=== PATIENT | male | born 1940 | race Two or more races ===

== ENCOUNTER → 2017-01-15 | Outpatient (CLI) | payer MEDICARE ==
--- NOTE | ~2017-01-15 | CT55 ---
[facility] A Service of [facility] & [facility] RADIOLOGY TEXT RESULTS PATIENT: MAXWELL KRUGER LOCATION: [facility] : 44 UNIT #: [id number] AGE: [address]: Bon Estevez MD SEX: M ORDER DR: [id number] [facility] [address] [place], [place] [address] [id number] O MR#: [id number] [facility] #: [id number] NAME: MAXWELL KRUGER : 1940 SEX: M STUDY DATE/TIME: 01/15/2017 14:51 UNIT: [facility] ROOM: STUDY DESCRIPTION: CT Chest W Con Attending Physician: Bon Estevez M.D. Referring Physician: Bon Estevez M.D. Ordering Physician: Bon Estevez M.D. Primary Care Physician: No Primary Care Physician MEDICAL IMAGING REPORT This report is preliminary unless electronic signature is present EXAM CT chest with contrast, 01/15/2017, 1451 hours. CLINICAL HISTORY 76-year-old man with history of lung cancer diagnosed 8 years ago with followup chemotherapy. Observation for suspected malignant neoplasm. Patient had recent pacemaker placement last month but no current chest complaints. COMPARISON CT angiogram of the abdomen and pelvis, 01/09/2016. Chest x-ray 09/17/2011. There is no prior chest CT for comparison. TECHNIQUE Dynamic helical CT images were obtained from the thoracic inlet through the adrenal glands. Sagittal and coronal reconstructions were performed. Contrast was Isovue-370 70 mL IV. Total exam DLP 523 mGy-cm. This CT exam was performed with one or more of the following radiation dose reduction techniques: automatic exposure control, adjustment of mA and/or kV according to patient size, and iterative reconstruction. FINDINGS Images through the thoracic inlet demonstrate no thyroid mass or supraclavicular adenopathy. There is median sternotomy change. There is a left subclavian pacer with leads over the right atrium and right ventricle. There is diffuse atherosclerotic change of the aorta with aneurysmal dilatation of the ascending aorta measuring 4.4 cm and descending thoracic aorta measuring 3.2 cm. There is no dissection. Cardiac chambers and pericardium are normal. The esophagus is normal. There are benign calcified subcarinal and hilar nodes. There is no pathologic adenopathy. Cardiac chambers and pericardium are normal. [facility]. [facility] A Service of [facility] RADIOLOGY TEXT RESULTS PATIENT: MAXWELL KRUGER LOCATION: [facility] : 44 UNIT #: [id number] AGE: [address]: Bon Estevez MD SEX: M ORDER DR: The lungs demonstrate emphysematous change and postop change in the left lung. There is a triangular-shaped density at the left apex, most likely an area of scar. There is suture line in the left midlung. There are ground-glass opacities having a rounded configuration in the left midlung left lung base which are indeterminate. These are not included in the field of view with CT lung window images from CT abdomen 01/09/2016. There is a cavitary lesion anteriorly in the left upper lobe measuring 3.1 x 3.2 x 3.5 cm with nodular thickening in the wall, particularly anterolaterally. This is concerning for malignancy. This is not included in the field of view of CT abdomen 01/09/2016 and do not have a prior chest CT available for comparison. Calcified granulomata are present. Limited views through the upper abdomen demonstrate no liver lesion. There is density in the gallbladder, likely sludge. The adrenal glands demonstrate stable thickening, left greater than right, as compared to 01/09/2016 CT abdomen. This is likely benign hyperplasia or adenoma. IMPRESSION 1. Abnormal chest CT. There is a cavitary 3.2 x 3.1 x 3.5 cm lesion in the anterior aspect right upper lobe with nodular thickening of the wall concerning for malignancy. I do not have a prior chest CT available for comparison. This area is not included in the field of view or prior CT abdomen and the lesion is not apparent on most recent available chest film of 09/17/2011. Correlation with more recent chest CTs would be helpful in assessing stability. 2. There is postop change in the left mid lung with suture line present. There are 3 small vague rounded ground-glass areas in the left lung which are indeterminate. Comparison with prior imaging would be helpful. Malignancy cannot be excluded. 3. There is no adenopathy or pleural effusion. 4. There is volume loss in the left hemithorax with triangular-shaped soft tissue density at the left apex most consistent with scar or chronic atelectasis. 5. Ascending thoracic aneurysm measuring 4.4 cm and descending thoracic aneurysm measuring 3.2 cm. 6. There is thickening of the adrenal gland similar to prior CT abdomen studies consistent with hyperplasia or adenoma. STAT * RESULT Dictated by... Binta Hadley M.D. THIS IS AN ELECTRONICALLY VERIFIED REPORT Binta Hadley M.D. at 01/16/2017 2:31 PM [facility] A Service of [facility] & [facility] RADIOLOGY TEXT RESULTS PATIENT: MAXWLEL KRUGER LOCATION: [facility] EDT #: [id number] : 44 UNIT #: [id number] AGE: [address]: Bon Estevez MD SEX: M ORDER DR: Nash TD: 01/16/2017 09:58 JOB #: [id number] MEDICAL IMAGING REPORT Page 1 of 1 COPY
[2017-01-15 15:36] LABS: POC - CREATININE 1.44 mg/dL (0.64-1.27); POC - GFR >60.0 mL/min (>60)
== END | disposition home or self-care (01) ==
LOC: CCAT 12:57
PROVIDERS: Internal Medicine Medical Oncology
DX: Z08 Encounter for follow-up examination after completed treatment for malignant neoplasm (principal); I71.2 Thoracic aortic aneurysm, without rupture; J98.4 Other disorders of lung; E27.8 Other specified disorders of adrenal gland; R91.8 Other nonspecific abnormal finding of lung field
CPT/HCPCS: 71260; 82565; Q9967